=== PATIENT | female | born 1975 | race Caucasian/White ===

== ENCOUNTER 2022-09-29 12:35 | Outpatient (CLI) | payer OTHER, SELFPAY ==
--- NOTE | ~2022-09-29 | MR_ITS ---
EXAMINATION: MR knee RT wo con DATE: 09/29/2022 13:42 INDICATION: Chronic right knee pain TECHNIQUE: Magnetic resonance imaging (MRI) of the right knee was performed without intravenous contr ast. Sequences included coronal PD-weighted FSE, coronal PD-weighted FS FSE, sagittal T2-weighted FS E, sagittal PD-weighted FS FSE and axial PD weighted fat saturated FSE. COMPARISON: None. FINDINGS: Medial compartment: Complex tear of the body and posterior horn of the medial meniscus which includes a partial-thickness radial tear near the posterior root. Deep chondral ulceration with minimal cortical irregularity aaron ng the lateral margin of the junction the anterior and central weightbearing medial femoral condyle. More extensive less severe partial thickness cartilage loss with chondral surface regularity along th e immediately anterior and central weightbearing medial femoral condyle. Additional deep chondral ulc eration with mild underlying cortical irregularity along the posterior aspect of the medial tibial pl ate[place]. There is partial thickness cartilage loss with chondral surface regularity along the anterior medial tibial plateau. Lateral compartment: Full-thickness tear at the posterior root of the lateral meniscus which extends approximately 1 cm la terally as a small longitudinal horizontal tear contacting the superior articular surface at the inne r third of the medial side of the posterior horn of the lateral meniscus. The posterior horn remains contiguous with a large meniscal femoral ligament of Davila. The articular cartilage in the lateral compartment appears normal. There is a small focus of mild subarticular edema-like signal change at the anterior weightbearing lateral femoral condyle the overlying the region of the posterior horn of the lateral meniscus which could be due to either otherwise occult chondral fissuring or reactive benita ma related to altered stress distribution resulting from the meniscal tear. Patellofemoral compartment: Deep chondral fissure involving greater than 50% the cartilage thickness but without degenerative sub chondral changes at the lateral patellar facet along the apical ridge. Remaining cartilage in the pat ellofemoral compartment appears normal. Ligaments and tendons: Complete tear along the femoral attachment of the anterior cruciate ligament with the lax appearing l igament tissue draped across the intercondylar eminence. The medial collateral ligament and fibular c ollateral ligament complex are normal. The extensor mechanism is normal. The visualized medial and la teral hamstring tendons as well as the iliotibial band are normal. Fluid: Physiologic amount of fluid in the joint space. No loose osteochondral bodies identified. Osseous/other: Bone alignment is normal. No fracture or pathologic marrow replacing process. IMPRESSION: 1. Complete anterior cruciate ligament tear. 2. Complex tears of the posterior horns of both the medial and lateral menisci. 3. 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 4. Single deep chondral fissure without degenerative subchondral changes at the lateral patellar face t. 5. Small focus of subarticular edema-like signal change along the anterior weightbearing lateral femo ral condyle which could be related to stress reaction related to altered weight distribution resultin g from the meniscal tear or secondary to otherwise occult deep chondral fissuring. Reviewed, dictated and finalized at location [facility]
== END 2022-09-29 12:36 | disposition home or self-care (01) ==
PROVIDERS: PCP Internal Medicine; Visit Provider Orthopaedic Surgery
DX: M25.561 Pain in right knee (principal); G89.29 Other chronic pain; S83.511A Sprain of anterior cruciate ligament of right knee, initial encounter; S83.271A Complex tear of lateral meniscus, current injury, right knee, initial encounter; S83.231A Complex tear of medial meniscus, current injury, right knee, initial encounter; M17.11 Unilateral primary osteoarthritis, right knee; M94.261 Chondromalacia, right knee
CPT/HCPCS: 73721